=== PATIENT | female | born 1980 | race American Indian/Alaskan Native ===

== ENCOUNTER 2020-09-28 17:24 | Emergency (ER) | payer OTHER ==
[2020-09-28 17:31] VITALS: BP 145/73
--- NOTE | 2020-09-28 17:37 | Event Note ---
ED Screening Note Date of service: 09/28/20 Time: 17:36 ED Screening Note: Complains of heavy vaginal bleeding x8 days History of endometriosis and fibroids States having dizziness and fatigue This initial assessment/diagnostic orders/clinical plan/treatment(s) is/are subject to change based on patients health status, clinical progression and re- assessment by fellow clinical providers in the ED. Further treatment and workup at subsequent clinical providers discretion. Patient/guardian urged not to elope from the ED as their condition may be serious if not clinically assessed and managed. Initial orders include: labs US
[2020-09-28 18:07] LABS: Bilirubin,Urine NEG (Negative); Blood,Urine LG (Negative); Color,Urine Yellow (Yellow); Mucus,Urine 1+ /HPF
[2020-09-28 18:35] LABS: Basophils % (Auto) 0.3 % (0.0-1.8); Hematocrit 29.1 % (30.3-42.9); Hemoglobin 9.4 gm/dl (10.1-14.3); Lymphocytes # (Auto) 1.3 K/mm3 (1.2-5.4); Lymphocytes % (Auto) 35.6 % (13.4-35.0); Mean Corpuscular HGB Conc 32 % (30-34); Mean Corpuscular Volume 78 fl (79-97); Monocytes # (Auto) 0.2 K/mm3 (0.0-0.8); Monocytes % (Auto) 6.3 % (0.0-7.3); Platelet Count 311 K/mm3 (140-440); Red Blood Count 3.73 M/mm3 (3.65-5.03); Red Cell Distribution Width 16.2 % (13.2-15.2)
[2020-09-28 18:44] LABS: INR 1.02 (0.87-1.13); Partial Thromboplastin Time 25.8 Sec. (24.2-36.6)
[2020-09-28 18:53] LABS: Alanine Aminotransferase 18 units/L (7-56); Albumin 3.9 g/dL (3.9-5); BUN/Creatinine Ratio 10; Blood Urea Nitrogen 8 mg/dL (7-17); Calcium 8.3 mg/dL (8.4-10.2); Hemolysis Index 3
--- NOTE | 2020-09-28 19:05 | Ultrasound Report ---
CLINICAL DATA: heavy vaginal bleeding TECHNICAL DATA: Ultrasound, pelvic (nonobstetric), real-time with image documentation; transabdominal and transvagina l imaging with Doppler was performed. FINDINGS: The uterus is of normal size and echogenicity. There are no uterine masses. Endometrial thickness 1. 1 cm. several small involuting cyst are present. The right and left ovaries not identified There is no significant quantity of free fluid dependently within the pelvis. IMPRESSION: 1. Endometrial thickening recommend clinical correlation 2. multiple small nabothian cyst GUIDELINES FOR IMAGING OF OVARIAN--ADNEXAL CYST: WOMEN OF REPRODUCTIVE AGE: 1. Cysts <=3 cm: Normal physiologic findings; at the discretion of the interpreting physician whether or not to describe them in the imaging report; do not need follow-up. 2. Cysts >3 and <=5 cm: Should be described in the imaging report with a statement that they are almo st certainly benign; do not need follow-up. 3. Cysts >5 and <=7 cm: Should be described in the imaging report with a statement that they are almo st certainly benign; yearly follow-up with US recommended. 4. Cysts >7 cm: Since these may be difficult to assess completely with US, further imaging with magne tic resonance (MR) or surgical evaluation should be considered. POSTMENOPAUSAL WOMEN: 1. Cysts <=1 cm: Are clinically inconsequential; at the discretion of the interpreting physician whet her or not to describe them in the imaging report; do not need follow-up. 2. Cysts >1 and <=7 cm: Should be described in the imaging report with statement that they are almost certainly benign; yearly follow-up, at least initially, with US recommended. Some practices may opt to increase the lower size threshold for follow-up from 1 cm to as high as 3 cm. One may opt to susan nue follow-up annually or to decrease the frequency of follow-up once stability or decrease in size h as been confirmed. Cysts in the larger end of this range should still generally be followed on a regu lar basis. 3. Cysts >7 cm: Since these may be difficult to assess completely with US, further imaging with MR or surgical evaluation should be considered. Signer Name: Hima Vogt MD Signed: 09/28/2020 7:00 PM Workstation Name: [id number]
--- NOTE | 2020-09-28 19:40 | Emergency Department Report ---
ED General Adult HPI - General Chief complaint: Vaginal Bleeding Stated complaint: VAG BLEEDING FOR 8 DAYS Time Seen by Provider: 09/28/20 17:36 Source: patient Mode of arrival: Ambulatory Limitations: No Limitations - History of Present Illness Initial comments: 40-year-old female present with chief complaint of vaginal bleeding, gradual onset 8 days ago and constant. States that she is passing clots as well. She states that she does not use pads but has been using adult diapers and using 2-3 a day. She states that over the past few days she has felt a bit lightheaded so she called her [facility] to get checked however they were unable to see her so she came here. She denies any other complaints besides pelvic cramping. Severity is moderate, no exacerbating or alleviating factors. - Related Data Previous Rx's Medication Instructions Recorded Last Taken Type Ferrous Sulfate [Iron 325 MG] 325 mg PO BID #60 tablet 09/28/20 Unknown Rx Naproxen [Naprosyn] 500 mg PO BID #20 tablet 09/28/20 Unknown Rx Allergies Allergy/AdvReac Type Severity Reaction Status Date / Time codeine AdvReac Nausea Verified 09/28/20 17:27 ED Review of Systems ROS: Stated complaint: VAG BLEEDING FOR 8 DAYS Other details as noted in HPI Comment: All other systems reviewed and negative Genitourinary: as per HPI ED Past Medical Hx - Past Medical History Hx Diabetes: Yes Additional medical history: ENDOMETROSIS/ FIBROIDS - Surgical History Additional Surgical History: BREAST REDUCTION - Social History Smoking Status: Current Every Day Smoker Substance Use Type: None - Medications Home Medications: Home Medications Medication Instructions Recorded Confirmed Last Taken Type Ferrous Sulfate [Iron 325 MG] 325 mg PO BID #60 tablet 09/28/20 Unknown Rx Naproxen [Naprosyn] 500 mg PO BID #20 tablet 09/28/20 Unknown Rx ED Physical Exam - General Limitations: No Limitations General appearance: alert, in no apparent distress - Head Head exam: Present: atraumatic, normocephalic - Eye Eye exam: Present: normal appearance - ENT ENT exam: Present: mucous membranes moist - Neck Neck exam: Present: normal inspection - Respiratory Respiratory exam: Present: normal lung sounds bilaterally. Absent: respiratory distress - Cardiovascular Cardiovascular Exam: Present: regular rate, normal rhythm. Absent: systolic murmur, diastolic murmur, rubs, gallop - GI/Abdominal GI/Abdominal exam: Present: soft, normal bowel sounds. Absent: distended, tenderness, guarding - Extremities Exam Extremities exam: Present: normal inspection - Back Exam Back exam: Present: normal inspection - Neurological Exam Neurological exam: Present: alert, oriented X3 - Psychiatric Psychiatric exam: Present: normal affect, normal mood - Skin Skin exam: Present: warm, dry, intact, normal color. Absent: rash ED Course Vital Signs 09/28/20 17:28 Temperature 97.6 F Pulse Rate 103 H Respiratory 18 Rate Blood Pressure 145/73 O2 Sat by Pulse 97 Oximetry ED Medical Decision Making - Lab Data Result diagrams: 09/28/20 17:52 09/28/20 17:52 - Radiology Data Radiology results: report reviewed Thickened endometrium - Medical Decision Making Patient present with complaints of vaginal bleeding over the past 8 days associated with clots and some intermittent pelvic cramping. She does not take blood thinners. Her examination is normal. Differentials include dysfunctional uterine bleeding, anemia. Labs and ultrasound were ordered in triage and show mild anemia at 9.4 with no baseline, ultrasound with thickened endometrium. Discussed need for iron therapy and outpatient follow-up with [facility]. - Differential Diagnosis Dysfunctional uterine bleeding, anemia Critical care attestation.: If time is entered above; I have spent that time in minutes in the direct care of this critically ill patient, excluding procedure time. ED Disposition Clinical Impression: Dysfunctional uterine bleeding, Endometrial thickening on ultrasound Anemia Qualifiers: Anemia type: other cause Other causes of anemia: other cause, not classified Qualified Code(s): D64.89 - Other specified anemias Disposition: DC- TO HOME OR SELFCARE Is pt being admited?: No Condition: Good Instructions: Dysfunctional Uterine Bleeding, Abnormal Uterine Bleeding Prescriptions: Ferrous Sulfate [Iron 325 MG] 325 mg PO BID #60 tablet Naproxen [Naprosyn] 500 mg PO BID #20 tablet Referrals: ANNE-MARIE CORBIN MD [Primary Care Provider] - 3-5 Days LAMONT SIMONS MD [Staff Physician] - 3-5 Days Time of Disposition: 20:03
[2020-09-28 20:02] LABS: HCG Qualitative,Urine Negative (Negative)
== END 2020-09-28 20:10 | disposition home or self-care (01) ==
LOC: ED 17:24
DX: D64.9 Anemia, unspecified (principal); N93.8 Other specified abnormal uterine and vaginal bleeding; R93.89 Abnormal findings on diagnostic imaging of other specified body structures; E11.9 Type 2 diabetes mellitus without complications; F17.200 Nicotine dependence, unspecified, uncomplicated; Z98.890 Other specified postprocedural states; Z79.899 Other long term (current) drug therapy; Z88.8 Allergy status to other drugs, medicaments and biological substances
CPT/HCPCS: 36415; 76830; 80053; 81001; 81025; 85025; 85610; 85730